=== PATIENT | female | born 1950 | race Caucasian/White ===

== ENCOUNTER 2024-07-31 17:18 | Emergency (ER) | payer MEDICARE, SELFPAY ==
--- NOTE | 2024-07-31 17:38 | PC.NURSE ---
CONFIRMED BED BUGS OF PATIENT. PATIENT WENT STRAIGHT TO [facility] ROOM, PROVIDED WITH SHOWER AND SET OF GREEN SCRUBS. PATIENTS BELONGINGS DOUBLE BAGGED.
[2024-07-31 17:43] VITALS: BMI 26.2
[2024-07-31 17:55] VITALS: BP 162/104; PULSE 70; RESP 17; TEMP 36.4; O2SAT 96
--- NOTE | 2024-07-31 18:01 | W.ED.SKABFB ---
HPI - Skin/Abscess/Foreign Bdy General: Chief complaint: Skin/Abscess/Foreign Body Stated complaint: bed bug bite, R calf pain, swelling, red, discharg Time Seen by Provider: 07/31/24 17:29 Source: patient Mode of arrival: ambulatory Limitations: no limitations History of Present Illness: 74-year-old female states she is a history of bedbugs she has had multiple bites she states she has 1 to her right calf that started to have some erythema and is concerned she may have an infection she denies any fevers denies any pain. Associated symptoms: Deny chills, fever(s), nausea or vomiting Related Data Previous Rx's ?Medication ?Instructions ?Recorded cephalexin 500 mg capsule 500 mg PO TID 7 days #21 caps 07/31/24 Review of Systems Const: Denies: fever(s), chills, body aches or change in appetite ENMT: Denies: throat pain or dental pain Card: Denies: chest pain Resp: Denies: dyspnea GI: Denies: abdominal pain, nausea, vomiting or diarrhea Musc: Denies: neck pain or back pain Skin/Breast: Reports: erythema; Denies: rash Neuro: Denies: headache(s) Physical Exam Const: COMMON NORMALS: no acute distress, patient oriented x3 and healthy appearing HENMT: COMMON NORMALS: normocephalic and atraumatic HEAD & SCALP: normocephalic and atraumatic Eye: COMMON NORMALS: conjunctivae normal CONJUNCTIVA: Yes conjunctivae normal Neck/C-Spine: COMMON NORMALS: full ROM and supple Chest: COMMONS NORMALS: normal inspection of the chest Resp: COMMON NORMALS: normal respiratory effort Cardio: COMMON NORMALS: regular rate RATE: regular rate Extremity: COMMON NORMALS: full ROM Neuro: COMMON NORMALS: patient oriented x3, moves all extremities and no focal motor deficits Psych: COMMON NORMALS: mental status grossly normal, Normal thought process present and cooperative THOUGHT PROCESS: Normal thought process present Skin: NARRATIVE SKIN EXAM: Bite noted to right lower leg with some erythema no drainage Course Vital Signs: Vital signs: Vital Signs Temperature 97.5 F L 07/31/24 17:55 Pulse Rate 70 07/31/24 17:55 Respiratory Rate 17 07/31/24 17:55 Blood Pressure 162/104 07/31/24 17:55 Pulse Oximetry 96 07/31/24 17:55 Oxygen Delivery Me thod Room Air 07/31/24 17:55 MDM - Skin/Abscess/Foreign Bdy Medicial Decision Making Patient presents here with insect bite with cellulitis will start on antibiotics patient stable for discharge follow-up PCP return if worsening. Medical Records I reviewed the patient's medical records. 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
== END 2024-07-31 18:24 | disposition home or self-care (01) ==
PROVIDERS: Emergency Provider Emergency Medicine
DX: S80.861A Insect bite (nonvenomous), right lower leg, initial encounter (principal); L03.115 Cellulitis of right lower limb; W57.XXXA Bitten or stung by nonvenomous insect and other nonvenomous arthropods, initial encounter
CPT/HCPCS: 99283

== ENCOUNTER → 2024-11-21 15:32 | Outpatient (BNVA) | payer MEDICARE, SELFPAY | DX: Z76.89 Persons encountering health services in other specified circumstances (principal) | CPT/HCPCS: 80053; 85025 ==

== ENCOUNTER 2025-03-08 15:17 | Outpatient (CLI) | payer MEDICARE, SELFPAY ==
--- NOTE | 2025-03-08 15:28 | XR_ITS ---
WS: [id number] Lumbar spine, 3 views, 03/08/2025 Clinical Data: back pain Comparison: None. Findings: No compression fractures are seen. There is a 0.3 cm anterior subluxation of L4 on L5. There is degenerative disc narrowing at L4-L5 and L5-S1. There is a dextroscoliosis of the upper lumbar spine. Osteoporosis is present. The transverse processes and SI joints are normal. XR/XR lumbar spine 2-3V* [id number] Impression: 1. Degenerative disc narrowing at L4-L5 and L5-S1 with a 0.3 cm anterior sublux ation of L4 on L5. 2. Dextroscoliosis and osteoporosis.
== END 2025-03-08 15:18 | disposition home or self-care (01) ==
DX: M51.360 Other intervertebral disc degeneration, lumbar region with discogenic back pain only (principal); M51.370 Other intervertebral disc degeneration, lumbosacral region with discogenic back pain only; M41.86 Other forms of scoliosis, lumbar region; M81.0 Age-related osteoporosis without current pathological fracture
CPT/HCPCS: 72100